=== PATIENT | female | born 1960 | race Caucasian/White ===

== ENCOUNTER → 2019-12-04 | Outpatient (CLI) | payer MEDICAID ==
[~2019-12-04] MED LIST: ACET325T14 PO; ASCO500T8 PO; B-12 PO; CARI350T PO; CHOL10003 PO; DIPH25CA61 PO; ESCI20TA10 PO; FOLI200T13 PO; HYDR-3246 PO; IBUP-1902 PO; MAGNESIUM PO
== END | disposition home or self-care (01) ==
LOC: STAR 13:54
PROVIDERS: ATTEND Obstetrics & Gynecology Female Pelvic Medicine and Reconstructive Surgery
DX: Z01.818 Encounter for other preprocedural examination (principal); Z11.59 Encounter for screening for other viral diseases; R10.2 Pelvic and perineal pain; N95.0 Postmenopausal bleeding; I45.10 Unspecified right bundle-branch block
CPT/HCPCS: 36415; 87635; 93005

== ENCOUNTER 2019-12-08 13:33 | Day surgery (SDC) | payer MEDICAID ==
[~2019-12-08] VITALS: Ht 160 cm; Wt 57.7 kg
[~2019-12-08 13:33] MED LIST changes: +BUPIVACAINE/PF 0.25% ONE; +GENTAMICIN 80 MG/2 ML ONE; +VANCOMYCIN 500 MG ONE
[2019-12-08] MEDS ORDERED: LACTATED RINGERS 1,000 ML IV SCH ×2 (13:57→20:31)
[2019-12-08 13:58] VITALS: BP 116/74
[2019-12-08] MEDS ORDERED: CHLORHEXIDINE 15 ML UDC MM ONE (14:00)
[2019-12-08] MEDS ORDERED: MIDAZOLAM 1 MG/ML, 2ML ONE (16:33)
[2019-12-08] MEDS ORDERED: FENTANYL PF 100 MCG/2ML ONE ×2 (16:33→18:39)
[2019-12-08] MEDS ORDERED: PROPOFOL 10 MG/ML, 20ML ONE (16:34)
[2019-12-08] MEDS ORDERED: ROCURONIUM 10MG/ML,5ML ONE (16:34)
[2019-12-08] MEDS ORDERED: ONDANSETRON 2MG/ML, 2ML ONE (16:43)
[2019-12-08] MEDS ORDERED: DEXAMETHASONE 4 MG/ML, 1ML ONE ×2 (16:43)
[2019-12-08] MEDS ORDERED: CEFAZOLIN 1,000 MG ONE ×2 (16:43)
[2019-12-08] MEDS ORDERED: SUGAMMADEX 200 MG/2 ML IVPush ONE (17:29)
[2019-12-08] MEDS ORDERED: BUPIVACAINE/PF-EPI 0.25% 1:200K INFIL ONE (17:44)
[2019-12-08] MEDS ORDERED: MEPERIDINE/PF 25MG/0.5ML IVPush PRN (18:00)
[2019-12-08] MEDS ORDERED: OXYcodone 5 MG/5 ML ORAL.SOL UDC PO PRN (18:00)
[2019-12-08] MEDS ORDERED: HYDROmorphone 1 MG/ML, 1ML INJ IVPush PRN (18:00)
[2019-12-08] MEDS ORDERED: ACETAMINOPHEN 325 MG TABLET PO PRN (18:00)
[2019-12-08] MEDS ORDERED: DIPHENHYDRAMINE 50 MG/ML, 1ML IVPush PRN (18:00)
[2019-12-08] MEDS ORDERED: DIAZEPAM 5 MG/ML, 2ML IVPush PRN (18:00)
[2019-12-08] MEDS ORDERED: PROMETHAZINE 25 MG/ML, 1ML IVPush PRN (18:00)
[2019-12-08] MEDS ORDERED: ONDANSETRON 2MG/ML, 2ML IVPush PRN (18:00)
[2019-12-08] MEDS ORDERED: KETOROLAC 30 MG/1 ML ONE (18:39)
[2019-12-08] MEDS ORDERED: MEPERIDINE/PF 25MG/ML,1ML ONE (18:39)
[2019-12-08] MEDS ORDERED: ACETAMINOPHEN 650 MG/20.3 ML UDC ONE (18:41)
[2019-12-08] MEDS ORDERED: OXYcodone 5 MG/5 ML ORAL.SOL UDC ONE (18:41)
[2019-12-08] MEDS ORDERED: KETOROLAC 30 MG/1 ML IVPush ONE (19:00)
[2019-12-08] MEDS: FENTANYL PF 100 MCG/2ML IV PRN ×2 (19:00→19:13)
[2019-12-08] MEDS ORDERED: OXYcodone/APAP 5/325MG TABLET PO PRN (20:30)
[2019-12-08] MEDS ORDERED: KETOROLAC 30 MG/1 ML IV PRN (20:30)
[2019-12-08] MEDS ORDERED: IBUPROFEN 600 MG TABLET PO PRN (20:30)
[2019-12-08] MEDS ORDERED: HYDROmorphone 1 MG/ML, 1ML INJ IV PRN (20:30)
[2019-12-08] MEDS ORDERED: HYDROcodone/APAP 5/325 TABLET PO PRN (20:30)
[2019-12-08] MEDS ORDERED: ONDANSETRON 2MG/ML, 2ML IV PRN (20:30)
== END 2019-12-08 22:05 | disposition home or self-care (01) ==
LOC: OUT 13:33 → 4NE 19:55 → OUT 22:05
PROVIDERS: ATTEND Obstetrics & Gynecology Female Pelvic Medicine and Reconstructive Surgery
DX: N95.0 Postmenopausal bleeding (principal); N83.292 Other ovarian cyst, left side; N83.291 Other ovarian cyst, right side; N85.8 Other specified noninflammatory disorders of uterus; Z79.899 Other long term (current) drug therapy; Z98.890 Other specified postprocedural states
CPT/HCPCS: 58552; 88307; J0690; J1100; J1170; J1885; J2175; J2250; J2405; J2704; J3010; J3490; J7120; G0378; J3370; J1580